=== PATIENT | male | born 1970 | race Asian ===

== ENCOUNTER 2023-05-03 08:18 | Outpatient (CLI) | payer BC | END 2023-05-03 08:19 | disposition home or self-care (01) | LOC: BICCT 08:18 | PROVIDERS: ATTEND Family Medicine | DX: R10.32 Left lower quadrant pain (principal); N28.9 Disorder of kidney and ureter, unspecified | CPT/HCPCS: 74177 ==

== ENCOUNTER 2024-11-14 09:11 | Outpatient (CLI) | payer BC | END 2024-11-14 09:12 | disposition home or self-care (01) | LOC: NM 09:11 | PROVIDERS: ATTEND Student in an Organized Health Care Education/Training Program | DX: R07.2 Precordial pain (principal); E11.9 Type 2 diabetes mellitus without complications; E78.5 Hyperlipidemia, unspecified | CPT/HCPCS: 36000; 78452; 93017; A9502; J2785 ==